=== PATIENT | female | born 1995 | race Two or more races ===

== ENCOUNTER 2016-06-08 20:18 | Emergency (ER) | payer SELFPAY ==
[~2016-06-08] VITALS: Ht 160 cm; Wt 61.2 kg
[2016-06-08 20:55] VITALS: BP 125/76
[2016-06-08] MEDS ORDERED: HYDR-971 PO (21:30)
[2016-06-08] MEDS ORDERED: SULF1TAB24 PO (21:30)
--- NOTE | 2016-06-08 21:31 | PHYS DOC ---
Past Medical History Past Medical History: Anxiety, Asthma, Migraines, Other Additional Past Medical Histor: MRSA Past Surgical History: Other Additional Past Surgical Histo: R KNEE, R BREAST Alcohol Use: Occasionally Drug Use: None Adult General Chief Complaint Chief Complaint: ABSCESS HPI HPI Patient is a 21 year old female presents emergency room with complaint of atraumatic right thigh swelling and redness that began approximately 4 days ago. Patient states that she has a previous history of MRSA. She states last episode was approximately 3 years ago which she was treated for antibiotics. Prior to that was approximately 5 years ago to her right lower leg which required hospitalization, IV antibiotics and surgical debridement. Patient denies frequent, recurrent skin infections. She denies antibiotic use within the past 90 days. Review of Systems Review of Systems Constitutional: Denies fever or chills [] Eyes: Denies change in visual acuity, redness, or eye pain [] HENT: Denies nasal congestion or sore throat [] Respiratory: Denies cough or shortness of breath [] Cardiovascular: No additional information not addressed in HPI [] GI: Denies abdominal pain, nausea, vomiting, bloody stools or diarrhea [] : Denies dysuria or hematuria [] Musculoskeletal: Denies back pain or joint pain [] Integument: Denies rash or skin lesions [] Neurologic: Denies headache, focal weakness or sensory changes [] Endocrine: Denies polyuria or polydipsia [] Current Medications Current Medications Current Medications Medications (Trade) Dose Ordered Sig/Fransisca Start Time Stop Time Status Last Admin Dose Admin Lidocaine/Sodium Bicarbonate (Buffered Lidocaine 1%) 20 ml 1X ONCE 06/08/16 22:00 06/08/16 22:01 DC 06/08/16 21:40 20 ML Allergies Allergies Allergies Coded Allergies Type Severity Reaction Last Updated Verified bacitracin Allergy Intermediate 06/08/16 Yes latex Allergy Intermediate 06/08/16 Yes neomycin Allergy Intermediate 06/08/16 Yes polymyxin B Allergy Intermediate 06/08/16 Yes Physical Exam Physical Exam Constitutional: Well developed, well nourished, no acute distress, non-toxic appearance. [] HENT: Normocephalic, atraumatic, bilateral external ears normal, oropharynx moist, no oral exudates, nose normal. [] Eyes: PERRLA, EOMI, conjunctiva normal, no discharge. [] Neck: Normal range of motion, no tenderness, supple, no stridor. [] Cardiovascular:Heart rate regular rhythm, no murmur [] Lungs & Thorax: Bilateral breath sounds clear to auscultation [] Abdomen: Bowel sounds normal, soft, no tenderness, no masses, no pulsatile masses. [] Skin: 2 cm, indurated abscess to the medial aspect of patient's left thigh. There is approximately a 5 cm diameter area of erythematous skin surrounding the abscess. There is a small amount of purulent drainage from the abscess itself. There is no inguinal lymphadenopathy. Back: No tenderness, no CVA tenderness. [] Extremities: No tenderness, no cyanosis, no clubbing, ROM intact, no edema. [] Neurologic: Alert and oriented X 3, normal motor function, normal sensory function, no focal deficits noted. [] Psychologic: Affect normal, judgement normal, mood normal. [] Current Patient Data Vital Signs Vital Signs Date Time Temp Pulse Resp B/P Pulse Ox O2 Delivery O2 Flow Rate FiO2 06/08/16 20:55 99.8 109 18 99 Room Air 99.8 EKG EKG [] Radiology/Procedures Radiology/Procedures Procedure note: Abscess site was anesthetized with buffered 1% lidocaine. Skin was prepped with Betadine solution. Abscess was incised with 11 blade scalpel. There was expression of a small amount of purulent material. Abscess was probed with forceps for loculations. No loculations are found. The remainder of the purulent material was expressed. Quarter-inch iodoform packing was placed into the abscess and dressed with a 4 x 4 gauze. Patient tolerated the procedure well. This procedure was performed by RITCHIE Burton student, my supervision. Course & Med Decision Making Course & Med Decision Making Pertinent Labs and Imaging studies reviewed. (See chart for details) [] Dragon Disclaimer Dragon Disclaimer This electronic medical record was generated, in whole or in part, using a voice recognition dictation system. Departure Departure Impression: Primary Impression: Cutaneous abscess Disposition: 01 HOME, SELF-CARE Condition: IMPROVED Patient Instructions: Abscess, Care After, Abscess, [id number] Additional Instructions: 1. Review the discharge instructions provided for self-care and reasons to return to the emergency department. 2. Avoid soaking in the bathtub, hot tub, swimming pool or natural bodies of water until the abscess completely heals. 3. Remove the packing material in 2 days while you're in the shower. Keep the area covered with a dressing until all drainage has stopped and the wound is healed. 4. Take the medication as prescribed. 5. Use the pamphlet provided for assistance in finding a primary care doctor to provide a wound check and address any other medical concerns that you may have. Call tomorrow to schedule an appointment. Scripts Hydrocodone/Apap 5-325 ([place] 5-325 Tablet)1 Each Tablet1 Tab PO PRN Q6HRS PRN PAIN #15 TAB Prov:ALIRIO CALDWELL 06/08/16 Sulfamethoxazole/Trimethoprim (Bactrim Ds Tablet)1 Each Tablet1 Each PO BID #20 TAB Prov:ALIRIO CALDWELL 06/08/16 ALIRIO CALDWELL Jun 08, 2016 21:31
[2016-06-08] MEDS ORDERED: LIDOCAINE 1% / SOD BICARB 8.4% 20 ML VIAL. IJ ONE (22:00)
== END 2016-06-08 22:39 | disposition home or self-care (01) ==
LOC: ER 20:18
DX: L02.416 Cutaneous abscess of left lower limb (principal); J45.909 Unspecified asthma, uncomplicated; F41.9 Anxiety disorder, unspecified; G43.909 Migraine, unspecified, not intractable, without status migrainosus; Z86.14 Personal history of Methicillin resistant Staphylococcus aureus infection; Z91.040 Latex allergy status; Z88.1 Allergy status to other antibiotic agents
CPT/HCPCS: 10060; 99283-25

== ENCOUNTER 2016-12-14 21:22 | Emergency (ER) | payer SELFPAY ==
[~2016-12-14 21:22] MED LIST: HYDR-971 PO; SULF1TAB24 PO
== END 2016-12-14 21:34 | disposition left against medical advice (07) ==
LOC: EEVIPCON 21:22 → ER 21:22
DX: Z53.21 Procedure and treatment not carried out due to patient leaving prior to being seen by health care provider (principal); Z88.1 Allergy status to other antibiotic agents; Z91.040 Latex allergy status

== ENCOUNTER 2017-06-24 09:13 | Emergency (ER) | payer SELFPAY ==
[2017-06-24 09:39] LABS: URINE HCG POC HCG POSITIVE (Negative)
[2017-06-24 09:53] LABS: BILIRUBIN,URINE NEGATIVE (NEG); CLARITY,URINE CLEAR; COLOR,URINE YELLOW; GLUCOSE,URINE NEGATIVE (NEG); NITRITE,URINE NEGATIVE (NEG); PROTEIN,URINE 30 mg/dL (NEG-TRACE); UROBILINOGEN,URINE 0.2 mg/dL (0.2 mg/dL)
[2017-06-24 10:05] LABS: BACTERIA,URINE FEW /HPF (0-FEW); RBC,URINE >40 /HPF (0-2); SQUAMOUS EPITHELIAL CELL,UR MANY /LPF
[2017-06-25 14:32] LABS: CHLAMYDIA PROBE Negative (Negative); GC PROBE Negative (Negative)
== END 2017-06-24 12:05 | disposition home or self-care (01) ==
LOC: ER 09:13
DX: O20.0 Threatened abortion (principal); O99.512 Diseases of the respiratory system complicating pregnancy, second trimester; J45.909 Unspecified asthma, uncomplicated; O99.341 Other mental disorders complicating pregnancy, first trimester; F41.9 Anxiety disorder, unspecified; Z3A.01 Less than 8 weeks gestation of pregnancy; Z88.8 Allergy status to other drugs, medicaments and biological substances; Z88.1 Allergy status to other antibiotic agents; Z91.040 Latex allergy status
CPT/HCPCS: 36415; 76801; 76817; 81001; 81025; 84702; 86850; 86900; 86901; 87086; 87491; 87591; 99285-25; Q0111

== ENCOUNTER 2017-06-24 23:29 | Emergency (ER) | payer SELFPAY ==
[2017-06-25] MEDS: IV NORMAL SALINE 1000ML BAG 1,000 ML IV (00:42)
[2017-06-25 00:51] LABS: HEMOGLOBIN 9.2 g/dL (12.0-15.5)
== END 2017-06-25 02:37 | disposition home or self-care (01) ==
LOC: ER 23:29
DX: O20.0 Threatened abortion (principal); O99.011 Anemia complicating pregnancy, first trimester; O99.512 Diseases of the respiratory system complicating pregnancy, second trimester; O99.321 Drug use complicating pregnancy, first trimester; J45.909 Unspecified asthma, uncomplicated; F12.10 Cannabis abuse, uncomplicated; Z3A.01 Less than 8 weeks gestation of pregnancy; Z88.8 Allergy status to other drugs, medicaments and biological substances; Z88.1 Allergy status to other antibiotic agents; Z91.040 Latex allergy status
CPT/HCPCS: 36415; 84702; 85018; 96360; 99284-25; J7030